=== PATIENT | female | born 1980 | race Caucasian/White ===

== ENCOUNTER 2023-11-13 03:49 | Emergency (ER) | payer OTHER, SELFPAY ==
[2023-11-13] MEDS ORDERED: Ketorolac Tromethamine 30 MG (1 mL) VIAL ONE (04:57)
[2023-11-13] MEDS ORDERED: SUMAtriptan Succinate 50 MG TAB PO SCH (05:15)
== END 2023-11-13 05:30 | disposition home or self-care (01) ==
LOC: ERS 03:49
DX: S02.5XXA Fracture of tooth (traumatic), initial encounter for closed fracture (principal); G43.909 Migraine, unspecified, not intractable, without status migrainosus; F17.290 Nicotine dependence, other tobacco product, uncomplicated; X58.XXXA Exposure to other specified factors, initial encounter; Z79.899 Other long term (current) drug therapy
CPT/HCPCS: 99283; J1885